=== PATIENT | female | born 1985 | race Asian ===

== ENCOUNTER 2016-07-27 16:54 | Emergency (ER) | payer BC ==
[~2016-07-27] VITALS: Ht 165.1 cm; Wt 65.8 kg
[2016-07-27 16:54] VITALS: BP_SYST 110
[2016-07-27 17:32] LABS: BASOPHILS # (AUTO) 0.1 K/uL (0.0-0.2); BASOPHILS % (AUTO) 2.6 % (0.0-2.0); EOSINOPHILS # (AUTO) 0.1 K/uL (0.0-0.4); HEMATOCRIT 37.5 % (36-48); HEMOGLOBIN 12.8 g/dL (12.0-16.0); LYMPHOCYTES # (AUTO) 2.1 K/uL (1.0-5.5); LYMPHOCYTES % (AUTO) 41.3 % (20.5-51.5); MEAN CORPUSCULAR HEMOGLOBIN 31 pg (27-31); MEAN CORPUSCULAR HGB CONC 34 % (32-36); MEAN CORPUSCULAR VOLUME 91 fL (79.0-98.0); MONOCYTES # (AUTO) 0.4 K/uL (0.0-1.0); MONOCYTES % (AUTO) 8.9 % (1.7-9.3); NEUTROPHILS # (AUTO) 2.4 K/uL (1.8-7.7); NEUTROPHILS % (AUTO) 46.2 % (40.0-70.0); PLATELET COUNT (AUTO) 279 K/uL (130-430); RED BLOOD CELL COUNT(AUTO) 4.13 MIL/uL (4.2-6.2); RED CELL DISTRIBUTION WIDTH 13.1 % (9.0-15.0); WHITE BLOOD COUNT (AUTO) 5.1 K/uL (4.8-10.8)
[2016-07-27 17:47] LABS: PROTHROMBIN TIME 10.9 SECS (9.5-12.5)
[2016-07-27 17:48] LABS: CALCIUM 8.6 mg/dL (8.4-11.0); CREATININE 0.56 mg/dL (0.55-1.30); POTASSIUM 3.8 mmol/L (3.5-5.1)
[2016-07-27 17:53] LABS: ALBUMIN 3.7 g/dL (3.4-4.8); TOTAL BILIRUBIN 0.4 mg/dL (0.0-1.0); TOTAL PROTEIN, SERUM 6.8 g/dL (6.4-8.3)
[2016-07-27 19:30] VITALS: BP_SYST 104
== END 2016-07-27 19:30 | disposition home or self-care (01) ==
LOC: SED 16:54
DX: R51 Headache (principal); R11.0 Nausea; R42 Dizziness and giddiness; Q23.9 Congenital malformation of aortic and mitral valves, unspecified
CPT/HCPCS: 36415; 70450-TC; 80053; 84484; 85025; 85610-TC; 85730-TC; 99285